=== PATIENT | female | born 1990 | race Caucasian/White ===

== ENCOUNTER 2017-09-28 19:09 | Emergency (ER) | payer MEDICAID, OTHER ==
[~2017-09-28] VITALS: Ht 167.6 cm; Wt 78.5 kg
[2017-09-28] MEDS ORDERED: HYDROcodone/APAP 5/325 TABLET PO ONE (20:00)
[2017-09-28] MEDS ORDERED: HYDROcodone/APAP 5/325 TABLET ONE (20:00)
[2017-09-28 20:49] VITALS: BP 109/74
[2017-09-28] MEDS ORDERED: DIPH,PERTUSS(ACELL),TET VAC/PF 0.5 ML IM-VACC ONE ×2 (21:25→21:30)
== END 2017-09-28 21:41 | disposition home or self-care (01) ==
LOC: ED 21:20
DX: S02.2XXA Fracture of nasal bones, initial encounter for closed fracture (principal); S01.21XA Laceration without foreign body of nose, initial encounter; Y04.0XXA Assault by unarmed brawl or fight, initial encounter; Y93.89 Activity, other specified; Y92.009 Unspecified place in unspecified non-institutional (private) residence as the place of occurrence of the external cause; Y99.9 Unspecified external cause status
CPT/HCPCS: 70450; 70486; 90471; 90715; 99284

== ENCOUNTER 2018-05-30 17:41 | Emergency (ER) | payer MEDICAID ==
[~2018-05-30] VITALS: Ht 167.6 cm; Wt 90.9 kg
[2018-05-30 17:43] VITALS: BP 119/63
[2018-05-30] MEDS ORDERED: LEVE100020 PO (18:02)
[2018-05-30] MEDS ORDERED: QUET50TA5 PO (18:03)
[2018-05-30] MEDS ORDERED: FLUO40CA9 PO (18:03)
== END 2018-05-30 18:53 | disposition home or self-care (01) ==
LOC: ED 18:47
DX: M51.16 Intervertebral disc disorders with radiculopathy, lumbar region (principal); G89.29 Other chronic pain; R20.2 Paresthesia of skin; G40.909 Epilepsy, unspecified, not intractable, without status epilepticus
CPT/HCPCS: 99283